=== PATIENT | female | born 1995 | race Caucasian/White ===

== ENCOUNTER 2021-11-22 09:40 | Emergency (ER) | payer OTHER, BC, SELFPAY ==
[2021-11-22 09:47] VITALS: BP 127/87; PULSE 71; RESP 12; TEMP 36.7; O2SAT 98; BMI 22.1
--- NOTE | 2021-11-22 10:00 | ED_ITS ---
HPI - Fever General: Chief Complaint: Fever Stated Complaint: sore throat/white spots Time Seen by Provider: 11/22/21 09:45 History of Present Illness: HPI Narrative: Patient with fever and sore throat last couple days. Patient has a history of recurrent strep infections. Denies Covid-like symptoms. MD elicited complaint: fever Onset (ago): day(s) Associated symptoms: Reports chills; Deny abdominal pain, chest pain, extremity pain, headache(s), nasal congestion, nausea or vomiting Review of Systems Const: Reports: fever(s) and chills; Denies: body aches Eyes: Denies: change in vision or blurry vision ENMT: Reports: throat pain; Denies: nasal congestion Card: Denies: chest pain or dyspnea on exertion Resp: Denies: dyspnea, productive cough or non-productive cough GI: Denies: abdominal pain, nausea or vomiting Musc: Denies: extremity pain Skin/Breast: Denies: rash Neuro: Denies: headache(s) Psych: Denies: anxiety or depression [place]/Lymph: Denies: easy bruising Physical Exam Const: COMMON NORMALS: no acute distress, average body habitus and patient oriented x3 HENMT: COMMON NORMALS: normocephalic HEAD & SCALP: normal to inspection and normocephalic FACE & SINUS: normal facial exam MOUTH: Normal oral and palatal mucosa present THROAT: posterior oropharynx abnormal cobblestoning, erythema and exudates Eye: COMMON NORMALS: conjunctivae normal GENERAL EYE: appearance normal, both eyes and all related structures CONJUNCTIVA: Yes conjunctivae normal Neck/C-Spine: COMMON NORMALS: no JVD Chest: COMMONS NORMALS: normal inspection of the chest Resp: COMMON NORMALS: normal respiratory effort and clear to auscultation bilaterally AUSCULTATION: clear to auscultation bilaterally Cardio: COMMON NORMALS: no JVD, regular rate and regular rhythm RATE: regular rate RHYTHM: regular rhythm GI: COMMON NORMALS: Normal to inspection, nondistended, normoactive bowel sounds present Extremity: COMMON NORMALS: normal to inspection and full ROM Neuro: COMMON NORMALS: patient oriented x3 Course Vital Signs: Vital signs: Vital Signs Temperature 98.0 F 11/22/21 09:47 Pulse Rate 71 11/22/21 09:47 Respiratory Rate 12 11/22/21 09:47 Blood Pressure 127/87 11/22/21 09:47 Pulse Oximetry 98 11/22/21 09:47 Coding Level of Care Code ED Cutting Machine Operator Helper for Ruby Curtis
[2021-11-22 10:18] LABS: Rapid Strep A Test Negative (Negative)
== END 2021-11-22 10:48 | disposition home or self-care (01) ==
PROVIDERS: Emergency Provider Nurse Practitioner Family
DX: R50.9 Fever, unspecified (principal); J02.9 Acute pharyngitis, unspecified
CPT/HCPCS: 87081; 87880; 99281

== ENCOUNTER 2025-09-23 15:38 | Emergency (ER) | payer SELFPAY ==
[2025-09-23 15:45] VITALS: BP 143/89; PULSE 102; RESP 18; TEMP 36.7; O2SAT 98
[2025-09-23 16:02] LABS: Glucose Urine UA Negative (Normal); Nitrate Urine Negative (Negative); Specific Gravity, Urine 1.003 (1.005-1.030)
--- NOTE | 2025-09-23 16:09 | XRR_ITS ---
PROCEDURE INFORMATION: Exam: XR Abdomen Exam date and time: 09/23/2025 4:29 PM Age: 29 years old Clinical indication: Abdominal pain; Prior surgery; Surgery date: 6+ months; Surgery type: Leep procedure, iud; Additional info: Abdominal pain; Tenderness; Some distention x 2 weeks; Constipation; PT states she was trying to use the bathroom today and had sudden pressure/burst type feeling in pelvic area; Small amount of bloody discharge to follow; HX cervical cancer with leep procedure. TECHNIQUE: Imaging protocol: Radiologic exam of the abdomen. Views: Frontal supine view of the abdomen. 1 View. COMPARISON: No relevant prior studies available. FINDINGS: Gastrointestinal tract: Moderate amount of colonic stool. Bowel-gas pattern appears nonobstructive with no air-filled dilated loops of bowel seen. Organs: IUD seen in the pelvis. Bones/joints: There is no acute osseous abnormality. XR/XR KUB [id number] IMPRESSION: 1. IUD seen in the pelvis. 2. Moderate amount of colonic stool. Correlate for symptoms of constipation. 3. Nonobstructive bowel-gas pattern.
[2025-09-23 16:12] LABS: Hematocrit 39.9 % (36-47); Hemoglobin 13.50 g/dL (11.27-16.99); Mean Corpuscular HGB Conc 33.8 g/dL (30-55); Mean Corpuscular Hemoglobin 29.8 pg (27-33); Mean Corpuscular Volume 88.1 fl (85-98); Nucleated Red Blood Cells % 0 %; Platelet Count 280 10^3/cmm (157-399); Red Blood Count 4.53 10^6/uL (3.85-5.65); White Blood Count 9.15 10^3/uL (3.29-11.43)
[2025-09-23 16:12] LABS: Add Urine Microscopic? YES
[2025-09-23 16:28] VITALS: BP 138/72; PULSE 91; RESP 18; O2SAT 100
--- NOTE | 2025-09-23 16:30 | USR_ITS ---
PROCEDURE INFORMATION: Exam: US Duplex Artery and Vein of the Abdominal and/or Reproductive Organs. Complete Ovaries Exam date and time: 09/23/2025 5:10 PM Age: 29 years old Clinical indication: Pelvic pain; Prior surgery; Surgery date: 6+ months; Surgery type: Unsure of dates. Patient has history of leap surgery; Additional info: Pelvic pain/iud TECHNIQUE: Imaging protocol: Real-time duplex ultrasound scan of the arterial and venous flow with color Doppler flow and spectral waveform analysis with image documentation. Duplex exam was performed to evaluate for torsion and other vascular conditions. COMPARISON: CR XR KUB [id number] 09/23/2025 4:29 PM FINDINGS: Right ovary/adnexa: Unremarkable arterial and venous Doppler waveforms in the ovary. No findings to suggest ovarian torsion at this time. Left ovary/adnexa: Unremarkable arterial and venous Doppler waveforms in the ovary. No findings to suggest ovarian torsion at this time. PROCEDURE INFORMATION: Exam: US Pelvis, Transvaginal, Non-Obstetric Exam date and time: 09/23/2025 5:10 PM Age: 29 years old Clinical indication: Pelvic pain; Prior surgery; Surgery date: 6+ months; Surgery type: Unsure of dates. Patient has history of leap surgery; Additional info: Pelvic pain/iud TECHNIQUE: Imaging protocol: Real-time transvaginal pelvic (non-obstetric) ultrasound with image documentation. Transvaginal imaging was used for better evaluation of the endometrium, adnexa, and/or cervix. COMPARISON: No relevant prior studies available. FINDINGS: Uterus: Anteverted uterus. No fibroids identified. Small cervical nabothian cysts. IUD appears well positioned in the endometrial canal. Endometrial thickness of about 8 mm, within normal limits. Small amount of nonspecific endometrial fluid. Right ovary/adnexa: Right ovary measures 3.2 x 2.2 x 2.3 cm, volume 8.3 cc. Right ovarian hypoechoic area measuring up to 1.3 cm which has some heterogeneous internal echoes and peripheral vascularity. Additional small follicles. Left ovary/adnexa: Left ovary measures 3.8 x 2.6 x 2.2 cm, volume 11.1 cc. Unremarkable ovarian size and appearance with small physiologic follicles. Intraperitoneal space: Small amount of free fluid, which can be physiologic. US/US transvaginal [id number] IMPRESSION: No specific sonographic findings to suggest ovarian torsion at this time. IMPRESSION: 1. IUD appears well positioned in the endometrial canal. Endometrial thickness of about 8 mm, within normal limits. Small amount of nonspecific endometrial fluid, correlate for bleeding or discharge symptoms. 2. Normal ovarian size and blood flow. 3. Right ovarian complicated hypoechoic area measuring up to 1.3 cm, favored to represent a small corpus luteum versus small hemorrhagic cyst. If clinically warranted, follow-up ultrasound could be obtained in 8-10 weeks to assess for resolution.
[2025-09-23 16:37] LABS: Alanine Aminotransferase 557 U/L (0-33); Albumin Level 4.2 g/dL (3.5-5.2); Alkaline Phosphatase 113 U/L (35-105); Anion Gap 15.7 (5-19); Aspartate Amino Transferase 241 U/L (0-32); Blood Urea Nitrogen 12 mg/dL (6-20); Calcium 9.2 mg/dL (8.5-10.5); Carbon Dioxide 25 mmol/L (22-29); Chloride 100 mmol/L (98-107); Creatinine Clr Calc Pharmacy 93.7409; Globulin 2.7 g/dL (1.3-4.6); Glucose 119 mg/dL (65-115); Lipase 50 U/L (13-60); Osmolality Calculated 285 mOsm/kg (285-295); Potassium 3.7 mmol/L (3.5-5.1); Sodium 137 mmol/L (136-145); Total Protein 6.9 g/dL (6.6-8.7)
--- NOTE | 2025-09-23 16:43 | ED_ITS ---
HPI - Female Genitourinary 2 General: Chief complaint: Vaginal Bleeding Stated complaint: abd pain, bleeding Time Seen by Provider: 09/23/25 15:52 Source: patient Mode of arrival: ambulatory Limitations: no limitations History of Present Illness: 29-year-old female states that earlier t nereyda she had some pelvic pressure she states she has had an IUD in for years. She states that she had felt of her cervix and had a slight gush of blood. States she had a test that she believes was positive early this week as well. She states that she also had been having some epigastric pain over the last week. She denies any fevers denies any severe pelvic pain. States she is sexually active with her they his only partner she has had in 11 years. Related Data Previous Rx's ?Medication ?Instructions ?Recorded polyethylene glycol 3350 17 gram 17 g PO DAILY PRN con stipation #14 09/23/25 oral powder packet (Miralax) ea Allergies Allergy/AdvReac Type Severity Reaction Status Date / Time buspirone (From BuSpar) Allergy ALGY-Rash Verified 11/22/21 09:47 Review of Systems 2 : Reports: vaginal bleeding Physical Exam 2 Const: COMMON NORMALS: no acute distress, patient oriented x3 and healthy appearing HENMT: COMMON NORMALS: normocephalic and atraumatic HEAD & SCALP: n ormocephalic and atraumatic Eye: COMMON NORMALS: conjunctivae normal CONJUNCTIVA: Yes conjunctivae normal Neck/C-Spine: COMMON NORMALS: full ROM and supple Chest: COMMONS NORMALS: normal inspection of the chest Resp: COMMON NORMALS: normal respiratory effort, No retractions, No use of accessory muscles and clear to auscultation bilaterally AUSCULTATION: clear to auscultation bilaterally Cardio: COMMON NORMALS: regular rate, regular rhythm and No murmurs present (Cardio) RATE: regular rate RHYTHM: regular rhythm GI: COMMON NORMALS: Normal to inspection, nondistended, normoactive bowel sounds present, Soft to palpation, non-tender and no masses PALPATION: Yes Soft to palpation : OTHER: I was not able to visualize a string from the cervix no cervical motion tenderness no cervicitis noted clear discharge was noted with no foul odor Extremity: COMMON NORMALS: normal to inspection and full ROM Neuro: COMMON NORMALS: patient oriented x3, moves all extremities and no focal motor deficits Psych: COMMON NORMALS: mental status grossly normal, Normal thought process present and cooperative THOUGHT PROCESS: Normal thought process present Skin: COMMON NORMALS: no rashes or lesions noted and no wounds GENERAL SKIN EXAM: no rashes or lesions noted Course 2 Vital Signs: Vital signs: Vital Signs Temperature 98.0 F 09/23/25 15:45 Pulse Rate 91 09/23/25 16:28 Respiratory Rate 18 09/23/25 16:28 Blood Pressure 138/72 09/23/25 16:28 Pulse Oximetry 100 09/23/25 16:28 Oxygen Delivery Me thod Room Air 09/23/25 16:28 MDM - Female Medical Decision Making Patient presents here with concern of diffuse abdominal pain and also had some slight vaginal bleeding earlier. Differential includes PID, ectopic , miscarriage. Patient's test here is negative pelvic exam showed no signs of PID and she has a normal white count. I got a verbal report from parts technician on the pelvic ultrasound that showed no acute abnormalities her x-ray KUB did show constipation likely causing some of her pain we will start her on MiraLAX she is to follow-up with her PCP and return if worsening I did go over all these findings with her and she understands agrees to plan. Medical Records I reviewed the patient's medical records. Lab Data I reviewed the patient's lab results. 09/23/25 16:00 09/23/25 16:00 Laboratory Results WBC 9.15 10^3/uL (3.29-11.43) 09/23/25 16:00 RBC 4.53 10^6/uL (3.85-5.65) 09/23/25 16:00 Hgb 13.50 g/dL (11.27-16.99) 09/23/25 16:00 Hct 39.9 % (36-47) 09/23/25 16:00 MCV 88.1 fl (85-98) 09/23/25 16:00 MCH 29.8 pg (27-33) 09/23/25 16:00 MCHC 33.8 g/dL (30-55) 09/23/25 16:00 RDW 12.0 % (12.1-15.1) L 09/23/25 16:00 Plt Count 280 10^3/cmm (157-399) 09/23/25 16:00 MPV 9.8 fL (7.4-10.4) 09/23/25 16:00 Neut % (Auto) 70.2 % 09/23/25 16:00 Lymph % (Auto) 21.2 % 09/23/25 16:00 [place] % (Auto) 5.8 % 09/23/25 16:00 Eos % (Auto) 2.1 % 09/23/25 16:00 Baso % (Auto) 0.3 % 09/23/25 16:00 Neut # (Auto) 6.42 10^3/uL (1.8-7.7) 09/23/25 16:00 Lymph # (Auto) 1.9 10^3/uL (0.8-4.8) 09/23/25 16:00 [place]aines # (Auto) 0.5 10^3/uL (0.2-0.9) 09/23/25 16:00 Eos # (Auto) 0.2 10^3/uL (0.0-0.8) 09/23/25 16:00 Baso # (Auto) 0.0 10^3/uL (0.0-0.1) 09/23/25 16:00 Nucleated RBC % (auto) 0 % 09/23/25 16:00 Nucleated RBCs # 0.0 /100WBC 09/23/25 16:00 Sodium 137 mmol/L (136-145) 09/23/25 16:00 Potassium 3.7 mmol/L (3.5-5.1) 09/23/25 16:00 Chloride 100 mmol/L (98-107) 09/23/25 16:00 Carbon Dioxide 25 mmol/L (22-29) 09/23/25 16:00 Anion Gap 15.7 (5-19) 09/23/25 16:00 BUN 12 mg/dL (6-20) 09/23/25 16:00 Creatinine 0.8 mg/dL (0.5-0.9) 09/23/25 16:00 GFR Calculation 84.2 mL/min (90-130) L 09/23/25 16:00 Glucose 119 mg/dL (65-115) H 09/23/25 16:00 Calculated Osmolality 285 mOsm/kg (285-295) 09/23/25 16:00 Calcium 9.2 mg/dL (8.5-10.5) 09/23/25 16:00 Total Bilirubin 0.6 mg/dL (0.15-1.2) 09/23/25 16:00 AST 241 U/L (0-32) H 09/23/25 16:00 ALT 557 U/L (0-33) H 09/23/25 16:00 Alkaline Phosphatase 113 U/L (35-105) H 09/23/25 16:00 Total Protein 6.9 g/dL (6.6-8.7) 09/23/25 16:00 Albumin 4.2 g/dL (3.5-5.2) 09/23/25 16:00 Globulin 2.7 g/dL (1.3-4.6) 09/23/25 16:00 Lipase 50 U/L (13-60) 09/23/25 16:00 Ser , Semi-Qnt < 1.00 mIU/mL 09/23/25 16:00 Urine Color Yellow (Yellow) 09/23/25 15:51 Urine Appearance Clear (CLEAR) 09/23/25 15:51 Urine pH 7.5 (5-7) 09/23/25 15:51 Ur Specific [place] 1.003 (1.005-1.030) L 09/23/25 15:51 Urine Protein Negative (Negative) 09/23/25 15:51 Urine Glucose (UA) Negative (Normal) 09/23/25 15:51 Urine Ketones Negative (Negative) 09/23/25 15:51 Urine Blood 2+ (Negative) A 09/23/25 15:51 Urine Nitrate Negative (Negative) 09/23/25 15:51 Urine Bilirubin Negative (Negative) 09/23/25 15:51 Urine Urobilinogen 0.2 mg/dL (Negative) 09/23/25 15:51 Ur Leukocyte Esterase 1+ (Negative) A 09/23/25 15:51 Urine RBC 0-2 /hpf (0-2) 09/23/25 15:51 Urine WBC 0-5 /hpf (0-5) 09/23/25 15:51 Ur Squamous Epith Cells 0-5 /hpf (0-5) 09/23/25 15:51 Amorphous Sediment Not Reportable 09/23/25 15:51 Urine Bacteria None /hpf (NONE) 09/23/25 15:51 XR interpretation done by ED provider, pending radiology final review Discharge Plan Discharge Patient Disposition: Home Clinical Impression: Vaginal bleeding, Constipation Condition: Stable Prescriptions: New polyethylene glycol 3350 [Miralax] 17 gram powder in packet 17 g PO DAILY PRN (Reason: constipation) Qty: 14 0RF Discharge Orders: Discharge ED (Routine); Ordered 09/23/25 Ordered By: Deon Pearson Discharge Diet: Advance as tolerated Discharge Activity: Resume usual activity Patient Instructions: Constipation (ED) Print Language: Indonesian Coding Level of Care Code ED Market Research Coordinator for Ruby Curtis
[2025-09-23 17:45] LABS: Trichomonas vaginalis (PCR) NOT DETECTED (Negative)
[2025-09-23 18:09] LABS: Neisseria Gonorrhea NOT DETECTED (Negative)
== END 2025-09-23 17:32 | disposition home or self-care (01) ==
PROVIDERS: Emergency Provider Emergency Medicine
DX: N93.9 Abnormal uterine and vaginal bleeding, unspecified (principal); K59.00 Constipation, unspecified
CPT/HCPCS: 36415; 74018; 76830; 80053; 81001; 83690; 84702; 85025; 87210; 87491; 87591; 87661; 99284